=== PATIENT | female | born 1935 | race Caucasian/White ===

== ENCOUNTER 2017-08-22 16:42 | Inpatient (IN) | payer MEDICARE, BC ==
[~2017-08-22] VITALS: Ht 167.6 cm; Wt 68.0 kg
[~2017-08-22 16:42] MED LIST: ACET325T53 PO; AMIN30LI2 PO; ASPI-605 PO; ATOR20TA PO; BISA10SU12 RC; CARB1TAB19 PO; CLON0.5T PO; DIVA125C PO; DOCU100T2 PO; GABA-532 PO; HYDR-552 PO; LACT10SO7 PO; MAG355OR18 PO; MAGN400O6 PO; METO25TA6 PO; NA P133E RC; NITR100C11 PO; ONDA4TAB5 PO; OXCA150T5 PO; RANI150T43 PO; SENN-18 PO
[2017-08-22] MEDS ORDERED: IV NORMAL SALINE 1000 ML BAG IV ONE (17:15)
[2017-08-22] MEDS ORDERED: ACETAMINOPHEN 650 MG SUPP.RECT RC ONE ×2 (17:30→17:42)
[2017-08-22] MEDS ORDERED: LORAZEPAM 2 MG/1 ML VIAL IV ONE (17:30)
[2017-08-22] MEDS ORDERED: LORAZEPAM 2 MG/1 ML VIAL ONE (17:42)
[2017-08-22 17:47] LABS: BASOPHILS # (AUTO) 0.1 K/uL (0.0-8.0); BASOPHILS % (AUTO) 0.4 % (0.0-2.0); EOSINOPHILS % (AUTO) 0.2 % (0.0-7.0); HEMATOCRIT 43.3 % (31.2-41.9); HEMOGLOBIN 14.4 g/dL (10.9-14.3); LYMPHOCYTES # (AUTO) 0.6 K/uL (20.0-40.0); LYMPHOCYTES % (AUTO) 3.6 % (20.5-51.5); MEAN CORPUSCULAR HEMOGLOBIN 30.8 uug (24.7-32.8); MEAN CORPUSCULAR HGB CONC 33 g/dL (32.3-35.6); MEAN CORPUSCULAR VOLUME 92.8 fL (75.5-95.3); MONOCYTES # (AUTO) 0.5 K/uL (2.0-10.0); MONOCYTES % (AUTO) 3.3 % (0.0-11.0); NEUTROPHILS # (AUTO) 14.3 K/uL (1.8-8.9); NEUTROPHILS % (AUTO) 92.5 % (38.5-71.5); PLATELET COUNT (AUTO) 248 K/uL (179-408); RED BLOOD CELL COUNT(AUTO) 4.67 MIL/uL (3.63-4.92); WHITE BLOOD COUNT (AUTO) 15.5 K/uL (3.8-11.8)
[2017-08-22 18:04] LABS: CARBON DIOXIDE 26 mmol/L (21-32); CHLORIDE 106 mmol/L (98-107); GLUCOSE 215 mg/dL (74-106); POTASSIUM 4.1 mmol/L (3.5-5.1); UREA NITROGEN, BLOOD 25 mg/dL (7-18)
[2017-08-22 18:09] LABS: ALANINE AMINOTRANSFERASE 7 U/L (14-59); ALKALINE PHOSPHATASE 73 U/L (50-136); ASPARTATE AMINOTRANSFERASE 14 U/L (15-37); BILIRUBIN,DIRECT 0.1 mg/dL (0.0-0.2); BILIRUBIN,TOTAL 0.6 mg/dL (0.2-1.0); TOTAL PROTEIN, SERUM 7.6 g/dL (6.4-8.2)
[2017-08-22] MEDS ORDERED: CEFTRIAXONE 1 G in IV DEXTROSE 5% 50 ML IV ONE (18:45)
[2017-08-22] MEDS ORDERED: CARB-93 PO (18:48)
[2017-08-22] MEDS ORDERED: PANT20TA2 PO (18:48)
[2017-08-22] MEDS ORDERED: MELA3TAB PO (18:48)
[2017-08-22] MEDS ORDERED: DOCU-141 PO (18:48)
[2017-08-22] MEDS ORDERED: WARF6TAB23 PO (18:48)
[2017-08-22] MEDS ORDERED: WARF5TAB77 PO (18:48)
[2017-08-22] MEDS ORDERED: AZITHROMYCIN IV 500 MG in IV DEXTROSE 5% 250 ML IV ONE (19:00)
[2017-08-22] MEDS ORDERED: AZITHROMYCIN 500 MG VIAL IV ONE (19:11)
[2017-08-22] MEDS ORDERED: Medication Not On Formulary EA (Warfarin Sodium (Coumadin) 6 MG) PO SCH (19:15)
[2017-08-22] MEDS ORDERED: Z GUARD REMEDY PASTE 57 GM TUBE TOP PRN (19:15)
[2017-08-22] MEDS ORDERED: ONDANSETRON 4 MG/2 ML VIAL IV PRN (19:15)
[2017-08-22] MEDS ORDERED: HYDROCODONE/APAP 5-325MG TABLET PO PRN (19:15)
[2017-08-22] MEDS ORDERED: SENNOSIDES 1 TABLET PO PRN (19:15)
[2017-08-22] MEDS ORDERED: ALBUTEROL SULFATE 2.5 MG/3 ML NEBU NEB PRN (19:15)
[2017-08-22] MEDS ORDERED: ACETAMINOPHEN 325 MG TABLET PO PRN ×2 (19:15)
[2017-08-22] MEDS ORDERED: FLEET ENEMA 133 ML BOTTLE RC PRN (19:15)
[2017-08-22] MEDS ORDERED: MAG HYDROX/AL HYDROX/SIMETH 30 ML LIQUID UDC PO PRN (19:15)
[2017-08-22] MEDS ORDERED: IV NS 1000 ML 1,000 ML IV PRN (19:15)
[2017-08-22] MEDS ORDERED: BISACODYL 10 MG SUPP.RECT RC PRN (19:15)
[2017-08-22] MEDS ORDERED: MAGNESIUM HYDROXIDE 30 ML LIQUID UDC PO PRN ×2 (19:15)
[2017-08-22] MEDS ORDERED: LACTULOSE 20 G/30 ML LIQUID UDC PO PRN (19:15)
[2017-08-22] MEDS ORDERED: CEFTRIAXONE 1 G VIAL ONE (20:00)
[2017-08-22] MEDS: ATORVASTATIN 20 MG TABLET PO SCH (21:00)
[2017-08-22] MEDS: CARBIDOPA/LEVODOPA 25-100MG TABLET PO SCH (21:00)
[2017-08-23 00:06] VITALS: BP 140/64
[2017-08-23 04:00] VITALS: BP 145/87
[2017-08-23 06:42] LABS: BASOPHILS % (AUTO) 0.2 % (0.0-2.0); EOSINOPHILS % (AUTO) 0.1 % (0.0-7.0); HEMATOCRIT 39.1 % (31.2-41.9); LYMPHOCYTES # (AUTO) 1.6 K/uL (20.0-40.0); MEAN CORPUSCULAR HEMOGLOBIN 30.9 uug (24.7-32.8); MEAN CORPUSCULAR HGB CONC 33 g/dL (32.3-35.6); MONOCYTES # (AUTO) 1.2 K/uL (2.0-10.0); MONOCYTES % (AUTO) 6.6 % (0.0-11.0); NEUTROPHILS # (AUTO) 14.9 K/uL (1.8-8.9); NEUTROPHILS % (AUTO) 84.1 % (38.5-71.5); PLATELET COUNT (AUTO) 208 K/uL (179-408); WHITE BLOOD COUNT (AUTO) 17.7 K/uL (3.8-11.8)
[2017-08-23 07:00] LABS: CARBON DIOXIDE 29 mmol/L (21-32); CHLORIDE 108 mmol/L (98-107); CREATININE 0.7 mg/dL (0.6-1.3); GLUCOSE 124 mg/dL (74-106); MAGNESIUM 1.9 mg/dL (1.8-2.4); PHOSPHOROUS 3.4 mg/dL (2.5-4.9); POTASSIUM 3.7 mmol/L (3.5-5.1); UREA NITROGEN, BLOOD 18 mg/dL (7-18)
[2017-08-23] MEDS: DIVALPROEX SPRINKLE 125 MG CAP.SPRINK PO SCH ×3 (08:42→16:11)
[2017-08-23] MEDS: PANTOPRAZOLE SODIUM 40 MG TABLET.DR PO SCH (08:42)
[2017-08-23] MEDS: GABAPENTIN 100 MG CAPSULE PO SCH ×2 (08:43→16:11)
[2017-08-23] MEDS: ASPIRIN EC 81 MG TABLET.DR PO SCH (08:43)
[2017-08-23] MEDS: CARBIDOPA/LEVODOPA 25-100MG TABLET PO SCH ×3 (08:43→18:22)
[2017-08-23] MEDS: OXCARBAZEPINE 150 MG TABLET PO SCH ×3 (08:43→16:11)
[2017-08-23] MEDS: DOCUSATE SODIUM 100 MG CAPSULE PO SCH (08:43)
[2017-08-23] MEDS: CLONAZEPAM 0.5 MG TABLET PO SCH ×2 (08:43→16:11)
[2017-08-23] MEDS: METOPROLOL TARTRATE 25 MG TABLET PO SCH ×2 (08:49→16:15)
[2017-08-23] MEDS: PROTEIN SUPPLEMENT (PROSTAT) 30 ML LIQUID PO SCH (08:59)
[2017-08-23] MEDS ORDERED: WARFARIN SODIUM 5 MG TABLET PO SCH ×2 (09:00→17:00)
[2017-08-23] MEDS ORDERED: Medication Not On Formulary EA (Docusate Sodium 100 MG) PO SCH (09:00)
[2017-08-23] MEDS ORDERED: Medication Not On Formulary EA (Amino Acids/Protein Hydrolys (Pro-Stat Liquid) 30 ML) PO SCH (09:00)
[2017-08-23] MEDS: PIPERACILLIN/TAZOBACTAM/D5W 50 ML IV SCH ×3 (10:41→21:13)
[2017-08-23 11:33] VITALS: BP 166/73
[2017-08-23] MEDS ORDERED: WARF5TAB77 PO (11:49)
[2017-08-23 16:02] VITALS: BP 144/70
[2017-08-23] MEDS ORDERED: MELATONIN 3 MG TABLET PO SCH (18:00)
[2017-08-23] MEDS ORDERED: CEFTRIAXONE 1 G in IV DEXTROSE 5% 50 ML IV SCH (20:00)
[2017-08-23 20:29] VITALS: BP 178/83
[2017-08-23] MEDS: ATORVASTATIN 20 MG TABLET PO SCH (20:38)
[2017-08-23] MEDS: MELATONIN 3 MG TABLET PO SCH (20:39)
[2017-08-23] MEDS ORDERED: AZITHROMYCIN IV 500 MG in IV DEXTROSE 5% 250 ML IV SCH (21:00)
[2017-08-23] MEDS ORDERED: CLONIDINE-TTS 1 PATCH TD SCH (23:30)
[2017-08-24] MEDS ORDERED: CLONIDINE-TTS 1 PATCH TD ONE (00:09)
[2017-08-24 00:25] VITALS: BP 178/93
[2017-08-24] MEDS: PIPERACILLIN/TAZOBACTAM/D5W 50 ML IV SCH ×4 (03:38→21:05)
[2017-08-24 04:00] VITALS: BP 147/79
[2017-08-24] MEDS: PANTOPRAZOLE SODIUM 40 MG TABLET.DR PO SCH (05:38)
[2017-08-24] MEDS: CARBIDOPA/LEVODOPA 25-100MG TABLET PO SCH ×4 (05:38→18:15)
[2017-08-24 07:09] LABS: BASOPHILS % (AUTO) 0.4 % (0.0-2.0); EOSINOPHILS % (AUTO) 0.4 % (0.0-7.0); HEMATOCRIT 36.8 % (31.2-41.9); LYMPHOCYTES # (AUTO) 0.9 K/uL (20.0-40.0); LYMPHOCYTES % (AUTO) 6.8 % (20.5-51.5); MEAN CORPUSCULAR HEMOGLOBIN 30.5 uug (24.7-32.8); MEAN CORPUSCULAR HGB CONC 33 g/dL (32.3-35.6); MEAN CORPUSCULAR VOLUME 93.5 fL (75.5-95.3); MONOCYTES # (AUTO) 0.7 K/uL (2.0-10.0); MONOCYTES % (AUTO) 5.7 % (0.0-11.0); NEUTROPHILS # (AUTO) 11.3 K/uL (1.8-8.9); NEUTROPHILS % (AUTO) 86.7 % (38.5-71.5); PLATELET COUNT (AUTO) 212 K/uL (179-408); RED BLOOD CELL COUNT(AUTO) 3.94 MIL/uL (3.63-4.92)
[2017-08-24 07:10] LABS: ALANINE AMINOTRANSFERASE 8 U/L (14-59); ALKALINE PHOSPHATASE 65 U/L (50-136); ASPARTATE AMINOTRANSFERASE 17 U/L (15-37); BILIRUBIN,TOTAL 0.8 mg/dL (0.2-1.0); CARBON DIOXIDE 27 mmol/L (21-32); CHLORIDE 104 mmol/L (98-107); GLUCOSE 235 mg/dL (74-106); MAGNESIUM 1.8 mg/dL (1.8-2.4); PHOSPHOROUS 3.2 mg/dL (2.5-4.9); POTASSIUM 3.4 mmol/L (3.5-5.1); TOTAL PROTEIN, SERUM 6.5 g/dL (6.4-8.2); UREA NITROGEN, BLOOD 16 mg/dL (7-18)
[2017-08-24 07:29] LABS: WHITE BLOOD COUNT (AUTO) 13.1 K/uL (3.8-11.8)
[2017-08-24] MEDS: GABAPENTIN 100 MG CAPSULE PO SCH ×2 (09:00→16:27)
[2017-08-24] MEDS: PROTEIN SUPPLEMENT (PROSTAT) 30 ML LIQUID PO SCH (09:00)
[2017-08-24] MEDS: DIVALPROEX SPRINKLE 125 MG CAP.SPRINK PO SCH ×3 (09:00→16:27)
[2017-08-24] MEDS: DOCUSATE SODIUM 100 MG CAPSULE PO SCH (09:00)
[2017-08-24] MEDS: CLONAZEPAM 0.5 MG TABLET PO SCH ×2 (09:01→16:28)
[2017-08-24] MEDS: OXCARBAZEPINE 150 MG TABLET PO SCH ×3 (09:01→16:27)
[2017-08-24] MEDS: ASPIRIN EC 81 MG TABLET.DR PO SCH (09:01)
[2017-08-24 11:07] VITALS: BP 134/67
[2017-08-24] MEDS ORDERED: FUROSEMIDE 20 MG/2 ML VIAL IV ONE (12:15)
[2017-08-24 13:18] LABS: THYROID STIMULATING HORMONE 2.091 mIU/mL (0.358-3.740)
[2017-08-24] MEDS ORDERED: POTASSIUM CHLORIDE 20 MEQ TAB.PRT.SR PO ONE (14:15)
[2017-08-24 15:05] VITALS: BP 104/68
[2017-08-24 16:10] LABS: *BILIRUBIN,URIN NEGATIVE (NEGATIVE); *BLOOD, URINE NEGATIVE (NEGATIVE); *CLARITY,URINE CLEAR (CLEAR); *COLOR,URINE YELLOW (YELLOW); *KETONES,URINE NEGATIVE (NEGATIVE); *PROTEIN,URINE NEGATIVE (NEGATIVE); *UROBILINOGEN,URINE 0.2 E.U./dl (NORMAL); LEUKOCYTE ESTERASE ,URINE NEGATIVE (NEGATIVE); NITRITE, URINE NEGATIVE (NEGATIVE); PH,URINE 5.5 (5.0-8.0); UGLUCOSE NEGATIVE (NEGATIVE)
[2017-08-24] MEDS ORDERED: WARFARIN SODIUM 5 MG TABLET ONE (16:12)
[2017-08-24 16:40] LABS: WBC,URINE NONE SEEN /HPF (0-3)
[2017-08-24 16:41] LABS: MUCUS,URINE FEW /LPF (0-FEW)
[2017-08-24] MEDS ORDERED: WARFARIN SODIUM PO SCH ×2 (17:00)
[2017-08-24 20:00] VITALS: BP 144/73
[2017-08-24] MEDS: ATORVASTATIN 20 MG TABLET PO SCH (20:40)
[2017-08-24] MEDS: MELATONIN 3 MG TABLET PO SCH (20:40)
[2017-08-25] MEDS: PIPERACILLIN/TAZOBACTAM/D5W 50 ML IV SCH ×4 (04:10→23:44)
[2017-08-25] MEDS: PANTOPRAZOLE SODIUM 40 MG TABLET.DR PO SCH (06:19)
[2017-08-25] MEDS: CARBIDOPA/LEVODOPA 25-100MG TABLET PO SCH ×4 (06:31→18:06)
[2017-08-25 07:33] LABS: CARBON DIOXIDE 32 mmol/L (21-32); CHLORIDE 107 mmol/L (98-107); CREATININE 0.7 mg/dL (0.6-1.3); GLUCOSE 109 mg/dL (74-106); POTASSIUM 4.4 mmol/L (3.5-5.1); UREA NITROGEN, BLOOD 15 mg/dL (7-18)
[2017-08-25] MEDS: GABAPENTIN 100 MG CAPSULE PO SCH ×2 (08:10→16:04)
[2017-08-25] MEDS: ASPIRIN EC 81 MG TABLET.DR PO SCH (08:10)
[2017-08-25] MEDS: OXCARBAZEPINE 150 MG TABLET PO SCH ×3 (08:10→16:04)
[2017-08-25] MEDS: DOCUSATE SODIUM 100 MG CAPSULE PO SCH (08:10)
[2017-08-25] MEDS: CLONAZEPAM 0.5 MG TABLET PO SCH ×2 (08:10→16:04)
[2017-08-25] MEDS: DIVALPROEX SPRINKLE 125 MG CAP.SPRINK PO SCH ×3 (08:10→16:04)
[2017-08-25] MEDS: PROTEIN SUPPLEMENT (PROSTAT) 30 ML LIQUID PO SCH (08:11)
[2017-08-25 11:10] VITALS: BP 145/75
[2017-08-25 15:10] VITALS: BP 117/81
[2017-08-25] MEDS ORDERED: FUROSEMIDE 20 MG/2 ML VIAL IV ONE (16:30)
[2017-08-25] MEDS ORDERED: COUMADIN VARIABLE DOSE REMINDE XX SCH (17:00)
[2017-08-25 20:34] VITALS: BP 136/85
[2017-08-25] MEDS ORDERED: VANCOMYCIN IV 1 G in PREMIXED 0 EACH IV SCH (21:00)
[2017-08-25] MEDS: MELATONIN 3 MG TABLET PO SCH (21:50)
[2017-08-26 04:00] VITALS: BP 150/75
[2017-08-26] MEDS: PIPERACILLIN/TAZOBACTAM/D5W 50 ML IV SCH ×3 (04:40→16:28)
[2017-08-26] MEDS: CARBIDOPA/LEVODOPA 25-100MG TABLET PO SCH ×3 (06:03→15:05)
[2017-08-26] MEDS: PANTOPRAZOLE SODIUM 40 MG TABLET.DR PO SCH (06:03)
[2017-08-26 07:15] LABS: ALANINE AMINOTRANSFERASE 13 U/L (14-59); ALKALINE PHOSPHATASE 52 U/L (50-136); ASPARTATE AMINOTRANSFERASE 15 U/L (15-37); BILIRUBIN,TOTAL 0.5 mg/dL (0.2-1.0); CARBON DIOXIDE 33 mmol/L (21-32); CHLORIDE 104 mmol/L (98-107); CREATININE 0.6 mg/dL (0.6-1.3); GLUCOSE 110 mg/dL (74-106); PHOSPHOROUS 3.5 mg/dL (2.5-4.9); POTASSIUM 3.9 mmol/L (3.5-5.1); TOTAL PROTEIN, SERUM 6.5 g/dL (6.4-8.2); UREA NITROGEN, BLOOD 16 mg/dL (7-18)
[2017-08-26 07:25] LABS: BASOPHILS % (AUTO) 0.3 % (0.0-2.0); EOSINOPHILS # (AUTO) 0.3 K/uL (0.0-0.7); EOSINOPHILS % (AUTO) 4.1 % (0.0-7.0); HEMATOCRIT 36.5 % (31.2-41.9); LYMPHOCYTES # (AUTO) 1.3 K/uL (20.0-40.0); LYMPHOCYTES % (AUTO) 16.3 % (20.5-51.5); MEAN CORPUSCULAR HEMOGLOBIN 30.8 uug (24.7-32.8); MEAN CORPUSCULAR HGB CONC 33 g/dL (32.3-35.6); MEAN CORPUSCULAR VOLUME 93.7 fL (75.5-95.3); MONOCYTES # (AUTO) 0.7 K/uL (2.0-10.0); NEUTROPHILS # (AUTO) 5.4 K/uL (1.8-8.9); NEUTROPHILS % (AUTO) 70.3 % (38.5-71.5); PLATELET COUNT (AUTO) 231 K/uL (179-408); RED BLOOD CELL COUNT(AUTO) 3.89 MIL/uL (3.63-4.92)
[2017-08-26 07:45] LABS: WHITE BLOOD COUNT (AUTO) 7.7 K/uL (3.8-11.8)
[2017-08-26] MEDS: DIVALPROEX SPRINKLE 125 MG CAP.SPRINK PO SCH ×3 (08:04→17:00)
[2017-08-26] MEDS: ASPIRIN EC 81 MG TABLET.DR PO SCH (08:04)
[2017-08-26] MEDS: OXCARBAZEPINE 150 MG TABLET PO SCH ×3 (08:04→17:00)
[2017-08-26] MEDS: CLONAZEPAM 0.5 MG TABLET PO SCH ×2 (08:04→17:00)
[2017-08-26] MEDS: DOCUSATE SODIUM 100 MG CAPSULE PO SCH (08:04)
[2017-08-26] MEDS: GABAPENTIN 100 MG CAPSULE PO SCH ×2 (08:05→17:00)
[2017-08-26] MEDS: PROTEIN SUPPLEMENT (PROSTAT) 30 ML LIQUID PO SCH (08:05)
[2017-08-26] MEDS ORDERED: INSULIN REGULAR, HUMAN 300 UNIT/3 ML VIAL SQ PRN (11:15)
[2017-08-26] MEDS ORDERED: DEXTROSE 50% 50 ML DISP.SYRIN IV PRN (11:15)
[2017-08-26 11:58] VITALS: BP 135/70
[2017-08-26] MEDS: BLOOD SUGAR DIAGNOSTIC 1 EACH STRIP VI SCH ×2 (12:00→17:03)
[2017-08-26 15:52] VITALS: BP 110/50
[2017-08-26] MEDS ORDERED: Blood Sugar Diagnostic VI (16:14)
[2017-08-26] MEDS ORDERED: MENT71OI TOP (16:14)
[2017-08-26] MEDS ORDERED: HYDR-3326 PO (16:14)
[2017-08-26] MEDS ORDERED: INSU100V28 SQ (16:14)
[2017-08-26] MEDS ORDERED: MELA3TAB PO (16:14)
[2017-08-26] MEDS ORDERED: ASPI-618 PO (16:14)
[2017-08-26] MEDS ORDERED: ALBU2.5V7 NEB (16:14)
[2017-08-26] MEDS ORDERED: WARF5TAB77 PO (16:14)
[2017-08-26] MEDS ORDERED: PIPE3.379 IV (16:33)
[2017-08-26] MEDS ORDERED: RXVAN IV (16:33)
[2017-08-26] MEDS ORDERED: COUMADIN VARIABLE DOSE REMINDE XX SCH (17:00)
[2017-08-26] MEDS ORDERED: WARFARIN SODIUM 5 MG TABLET PO ONE (17:00)
[2017-08-27] MEDS ORDERED: WARFARIN SODIUM 5 MG TABLET PO ONE (17:00)
== END 2017-08-26 19:45 | DRG 871 ==
LOC: ER 16:43 → TELE 22:20 → MED 08-24 15:09
PROVIDERS: ADMIT Internal Medicine; ATTEND Internal Medicine
DX: A41.9 Sepsis, unspecified organism (principal); J69.0 Pneumonitis due to inhalation of food and vomit; E43 Unspecified severe protein-calorie malnutrition; G93.40 Encephalopathy, unspecified; E87.2 Acidosis; D68.59 Other primary thrombophilia; E11.40 Type 2 diabetes mellitus with diabetic neuropathy, unspecified; I50.32 Chronic diastolic (congestive) heart failure; F25.9 Schizoaffective disorder, unspecified; G20 Parkinson's disease; G40.909 Epilepsy, unspecified, not intractable, without status epilepticus; I48.2 Chronic atrial fibrillation; I11.0 Hypertensive heart disease with heart failure; E03.9 Hypothyroidism, unspecified; K21.9 Gastro-esophageal reflux disease without esophagitis; I69.319 Unspecified symptoms and signs involving cognitive functions following cerebral infarction; F01.50 Vascular dementia, unspecified severity, without behavioral disturbance, psychotic disturbance, mood disturbance, and anxiety; J01.40 Acute pansinusitis, unspecified; J32.4 Chronic pansinusitis; I25.10 Atherosclerotic heart disease of native coronary artery without angina pectoris; K59.09 Other constipation; Z68.24 Body mass index [BMI] 24.0-24.9, adult; Z79.01 Long term (current) use of anticoagulants; Z79.82 Long term (current) use of aspirin; Z79.899 Other long term (current) drug therapy; Z86.61 Personal history of infections of the central nervous system; Z87.11 Personal history of peptic ulcer disease; M81.0 Age-related osteoporosis without current pathological fracture; E78.5 Hyperlipidemia, unspecified; F41.9 Anxiety disorder, unspecified; F39 Unspecified mood [affective] disorder
CPT/HCPCS: 36415; 70030-TC; 70450; 71045; 83605; 83735; 84100; 84443; 85025; 85610; 85730; 87040; 87086; 87400; 92610; 93005; A4663; C1758; J0456; J0696; J1815; J1940; J2060; J2543; J3370; J7030; J7060